=== PATIENT | female | born 1955 ===

== ENCOUNTER 2018-09-23 07:59 | Day surgery (SDC) | payer MEDICAID ==
[2018-09-23 08:32] VITALS: O2SAT 100
[2018-09-23] MEDS ORDERED: Propofol 10 mg/ml Inj (20 ML) ONE ×2 (09:36→09:51)
[2018-09-23] MEDS ORDERED: Lidocaine Hydrochloride 5 ML INJ ONE (09:37)
[2018-09-23 10:27] VITALS: RESP 12
[2018-09-23 10:52] VITALS: TEMP 98.5
[2018-09-23 13:23] VITALS: BP 110/65; PULSE 59
== END 2018-09-23 13:21 | disposition home or self-care (01) ==
LOC: C.ENDO 07:59
PROVIDERS: ATTEND Internal Medicine Gastroenterology
DX: K57.30 Diverticulosis of large intestine without perforation or abscess without bleeding (principal); K64.9 Unspecified hemorrhoids
CPT/HCPCS: 45378; J2704